=== PATIENT | male | born 1995 | race Caucasian/White ===

== ENCOUNTER 2019-09-09 17:20 | Emergency (ER) | payer BC ==
[2019-09-09 18:40] VITALS: BP 143/96
--- NOTE | 2019-09-09 18:41 | UC ---
Complaint Male HPI - HPI Summary HPI Summary: 23 yo male presents with blood in semen. He tells me that today he was masturbating and noticed about 5mm of dark red blood mixed in his semen. Since that time he admits to some b/l testicular discomfort and burning in his urethra , but states that these sensations could be from being anxious about the blood in his semen. He has never had this issue in the past. He has been in a monogamous relationship with his gf of 8 year and denies risk for STD today. Denies fever, chills, abdominal pain, flank pain, dysuria. - History of Current Complaint Chief Complaint: UCGU Stated Complaint: PERSONAL ISSUE Time Seen by Provider: 09/09/19 18:41 Hx Obtained From: Patient Onset/Duration: Sudden Onset Severity Initially: Mild Severity Currently: Mild Pain Intensity: 2 Pain Scale Used: 0-10 Numeric - Allergies/Home Medications Allergies/Adverse Reactions: Allergies Allergy/AdvReac Type Severity Reaction Status Date / Time No Known Allergies Allergy Verified 09/09/19 18:40 Home Medications: Home Medications PARoxetine HCL TAB* [Paxil TAB*] 20 mg PO DAILY 09/09/19 [History Confirmed ] PMH/Surg Hx/FS Hx/Imm Hx Psychological History: Anxiety - Surgical History Surgical History: Yes Surgery Procedure, Year, and Place: appendectomy - Family History Known Family History: Positive: None - Social History Lives: With Family Alcohol Use: Occasionally Alcohol Amount: every other day Substance Use Type: None Smoking Status (MU): Current Every Day Smoker Type: eCigarettes Review of Systems All Other Systems Reviewed And Are Negative: No Constitutional: Positive: Negative Skin: Positive: Negative Respiratory: Positive: Negative Cardiovascular: Positive: Negative Gastrointestinal: Positive: Negative Genitourinary: Positive: Other - Blood in semen Neurovascular: Positive: Negative Neurological: Positive: Negative Psychological: Positive: Negative Physical Exam - Summary Physical Exam Summary: GENERAL: NAD. WDWN. No pain distress. SKIN: No rashes, sores, lesions, or open wounds. NECK: Supple. Nontender. No lymphadenopathy. CHEST: CTAB. No r/r/w. No accessory muscle use. Breathing comfortably and in no distress. CV: RRR. Pulses intact. Cap refill <2seconds ABDOMEN: Soft. NTTP. No distention or guarding. No CVA tenderness. Bowel sounds present NEURO: Alert. PSYCH: Age appropriate behavior. Triage Information Reviewed: Yes Vital Signs: Initial Vital Signs Temp 97.9 F 09/09/19 18:37 Pulse 95 09/09/19 18:37 Resp 16 09/09/19 18:37 BP 143/96 09/09/19 18:37 Pulse Ox 100 09/09/19 18:37 Laboratory Tests 09/09/19 19:11 POC Urine Color Dark yellow POC Urine Clarity Clear POC Urine pH 6.0 POC Ur Specif [place] 1.025 POC Urine Protein Negative POC Ur Glucose (UA) Negative POC Urine Ketones Negative POC Urine Blood Negative POC Urine Nitrite Negative POC Urine Bilirubin Negative POC Urine Urobilinogen 0.2 POC U Leukocyte Esteras Negative Vital Signs Reviewed: Yes Male Genital Exam: Positive: Normal Genitalia, No Hernia. Negative: Bleeding, Epididymal Tenderness, Erythema, Inguinal Tenderness, Lesions, Scrotum Tenderness (R), Scrotum Tenderness (L), Testicular Tenderness (R), Testicular Tenderness (L), Urethral Discharge Diagnostics - Radiology Testicular US Radiology Interpretation Completed By: Radiologist Summary of Radiographic Findings: IMPRESSION: No testicular torsion, orchitis or epididymitis. Complaint Male Course/Dx - Course Course Of Treatment: US as above. UA negative. Will refer to Urology for further evaluation. - Differential Dx/Diagnosis Provider Diagnosis: Blood in semen Discharge ED - Sign-Out/Discharge Documenting (check all that apply): Patient Departure All imaging exams completed and their final reports reviewed: Yes - Discharge Plan Condition: Stable Disposition: HOME Referrals: Ryann Cruz MD [Primary Care Provider] - Bala Briseno MD [Medical Doctor] - As Soon As Possible Additional Instructions: If you develop a fever, shortness of breath, chest pain, new or worsening symptoms - please call your PCP or go to the ED immediately. Please call Urology at the number below to schedule an appointment for further eval of your symptoms - Billing Disposition and Condition Condition: STABLE Disposition: Home
[2019-09-11 12:32] LABS: Chlamydia trachomatis NAA Negative (Negative); Neisseria gonorrhoeae (GC) NAA Negative (Negative)
== END 2019-09-09 19:55 | disposition home or self-care (01) ==
LOC: UCEAST 17:20
DX: R36.1 Hematospermia (principal); F41.9 Anxiety disorder, unspecified; F17.210 Nicotine dependence, cigarettes, uncomplicated; Z79.899 Other long term (current) drug therapy
CPT/HCPCS: 76870; 81003; 87491; 87591; 99201; G0463